=== PATIENT | female | born 1995 | race Caucasian/White ===

== ENCOUNTER 2016-09-01 20:23 | Emergency (ER) | payer OTHER ==
[2016-09-01 20:30] VITALS: BP 140/72; PULSE 82; TEMP 98.1; BMI 30.1
--- NOTE | 2016-09-01 20:54 | PDOC ---
History of Present Illness - General Chief Complaint: Laceration Stated Complaint: LACERATION Time Seen by Provider: 09/01/16 20:35 History Source: Patient Exam Limitations: No Limitations - History of Present Illness Initial Comments: 09/01/16 20:50 20 yr female sat accidentaly on a pair of scissors causing laceration to right buttock. Timing/Duration: reports: just prior to arrival Severity: Yes: mild Past History - Past Medical History Allergies/Adverse Reactions: Allergies Allergy/AdvReac Type Severity Reaction Status Date / Time No Known Allergies Allergy Verified 09/01/16 20:29 Home Medications: Ambulatory Orders NK [No Known Home Medication] 09/01/16 Asthma: No Cancer: No Cardiac Disorders: No Diabetes: No HTN: No Seizures: No Thyroid Disease: No - Psycho/Social/Smoking Cessation Hx Suicidal Ideation: No Smoking History: Never smoked Have you smoked in the past 12 months: No Hx Alcohol Use: No Drug/Substance Use Hx: No Hx Substance Use Treatment: No *Physical Exam - Vital Signs Last Vital Signs Temp Pulse Resp BP Pulse Ox 98.1 F 82 18 140/72 99 09/01/16 20:26 09/01/16 20:26 09/01/16 20:26 09/01/16 20:26 09/01/16 20:26 - Physical Exam General Appearance: Yes: Nourished HEENT: positive: EOMI, MAXX Integumentary: positive: Normal Color, Dry, Warm, Other (right buttock with 2.0cm linear laceration no active bleeding) Neurologic: positive: Alert, Motor Strength 5/5 Procedures - Laceration/Wound Repair Right Buttocks Wound Length: to 2.5 cm Wound Explored: clean Wound's Depth, Shape: into muscle, linear Irrigated w/ Saline: Yes Betadine Prep: Yes Anesthesia: 1% Lidocaine Amount of Anesthetic (ccs): 5 Suture Size/Type: 4:0, nylon Number of Sutures: 4 Sterile Dressing Applied: Yes Splint Applied: No Progress: 09/01/16 20:53 tolerated well edges well approximated 4 simple interrupted sutures placed bacitracin and bandaid Medical Decision Making - Medical Decision Making 09/01/16 20:53 cc: right buttock laceration on scissors wound cleaned pt states tetanus is UTD last year sutured closed wound care discussed *DC/Admit/Observation/Transfer Diagnosis at time of Disposition: Laceration - Discharge Dispostion Disposition: HOME Condition at time of disposition: Improved - Patient Instructions Printed Discharge Instructions: DI for Laceration Repair Additional Instructions: keep dry no getting wet apply a thin layer of antibiotic ointment once a day (such as Bacitracin or Neopsorin ) to the wound and cover with bandaid Return in 10 days for suture removal Return sooner if any concerns
== END 2016-09-01 20:55 | disposition home or self-care (01) ==
LOC: JERFT 20:23
PROC: 0HQ8XZZ Repair Buttock Skin, External Approach (ICD-10-PCS; principal; 2016-09-01)
DX: S31.811A Laceration without foreign body of right buttock, initial encounter (principal); W22.8XXA Striking against or struck by other objects, initial encounter; Y93.89 Activity, other specified; Y92.9 Unspecified place or not applicable
CPT/HCPCS: 12001-25; 99281-25

== ENCOUNTER 2016-09-11 17:31 | Emergency (ER) | payer OTHER ==
[2016-09-11 17:36] VITALS: BP 114/65; PULSE 88; TEMP 98; BMI 30.1
--- NOTE | 2016-09-11 18:02 | PDOC ---
Suture Removal/Wound Check HPI - History of Present Illness Chief Complaint: Suture/Staple Removal(Here) Stated Complaint: STITCHES REMOVAL Time Seen by Provider: 09/11/16 17:49 History Source: Yes: Patient Exam Limitations: Yes: No Limitations Date of Last ED visit: 09/03/16 - Previous ED Treatment Type of procedure performed on last visit: Yes: Laceration Repair Past History - Past Medical History Allergies/Adverse Reactions: Allergies No Known Allergies Allergy (Verified 09/11/16 17:34) Home Medications: Ambulatory Orders NK [No Known Home Medication] 09/01/16 Surgical History: Yes: No Surgical History - Immunization History Tetanus Status: Unknown - Social History Smoking Status: Never smoked Suture Removal/Wound Check PE - Physical Exam Comments: 09/11/16 18:01 healing well; not infected *DC/Admit/Observation/Transfer Diagnosis at time of Disposition: Encounter for removal of sutures - Discharge Dispostion Disposition: HOME Condition at time of disposition: Stable Admit: No - Patient Instructions Additional Instructions: no follow up needed
== END 2016-09-11 18:12 | disposition home or self-care (01) ==
LOC: JERFT 17:31
DX: Z48.02 Encounter for removal of sutures (principal)
CPT/HCPCS: 99281-25

== ENCOUNTER 2017-10-24 13:05 | Inpatient (IN) | payer OTHER ==
[2017-10-24] MEDS ORDERED: CITRIC ACID/SODIUM CITRATE 30 ML UNIT-DOSE CUP PO ONE (13:15)
[2017-10-24] MEDS ORDERED: ELECTROLYTE-148 SOLN 500 ML IV SCH ×2 (13:15→13:45)
[2017-10-24 14:16] VITALS: BMI 36.8
[2017-10-24] MEDS ORDERED: morphine SULFATE/Preservative Free 0.5 MG/ML (1cc Syringe) ONE ×7 (14:25→16:38)
[2017-10-24] MEDS ORDERED: ceFAZolin SODIUM 1 GM VIAL ONE ×3 (14:27→17:47)
[2017-10-24] MEDS ORDERED: IBUPROFEN 800 MG/8 ML IJ IVPB PRN (14:30)
[2017-10-24] MEDS ORDERED: ONDANSETRON 4 MG/2 ML VIAL IVPUSH PRN (14:31)
[2017-10-24] MEDS ORDERED: BUPIVACAINE 0.75% IN DEXTROSE/PF 2ML AMPULE NR ONE (14:32)
[2017-10-24] MEDS ORDERED: OXYTOCIN 10 UNITS/ML VIAL ONE ×2 (14:32→15:04)
--- NOTE | 2017-10-24 14:37 | HP ---
Past Medical History - Primary Care Physician PCP:: Estrada Gloria - Admission Chief Complaint: 39 weeks, previous c/s, request of c/s History of Present Illness: 21 yo f 39 weeks, with one previous c/s , requesting repeat c/s , risks discussed , encourged , declined History Source: Patient Limitations to Obtaining History: No Limitations - Past Medical History ...: 2 ...Para: 1 ...Term: 1 ...: 0 ...Spon : 0 ...Induced : 0 ...Multiple Gestation: 0 ...LMP: 01/24/17 ... Weeks Gestation by Dates: 39.0 ...EDC by Dates: 01/24/18 ...EDC by Sono: 01/24/18 - Past Surgical History Past Surgical History: Yes: Hx Myomectomy: No Hx Transabdominal Cerclage: No - Smoking History Smoking history: Never smoked Have you smoked in the past 12 months: No - Alcohol/Substance Use Hx Alcohol Use: No - Social History History of Recent Travel: No Home Medications - Allergies Allergies/Adverse Reactions: Allergies Allergy/AdvReac Type Severity Reaction Status Date / Time No Known Allergies Allergy Verified 10/24/17 13:29 - Home Medications Home Medications: Ambulatory Orders Vit No.130/Iron/Folic [ Vitamins] 1 each PO DAILY 10/24/17 Review of Systems - Review of Systems Constitutional: reports: No Symptoms Eyes: reports: No Symptoms HENT: reports: No Symptoms Neck: reports: No Symptoms Cardiovascular: reports: No Symptoms Respiratory: reports: No Symptoms Gastrointestinal: reports: No Symptoms Genitourinary: reports: No Symptoms Breasts: reports: No Symptoms Reported Musculoskeletal: reports: No Symptoms Integumentary: reports: No Symptoms Neurological: reports: No Symptoms Endocrine: reports: No Symptoms Hematology/Lymphatic: reports: No Symptoms Psychiatric: reports: No Symptoms Physical Exam - Maternity Vital Signs: Vital Signs Temperature 98.8 F 10/24/17 13:45 Pulse Rate 94 H 10/24/17 13:45 Respiratory Rate 10/24/17 13:45 Blood Pressure 122/84 10/24/17 13:45 O2 Sat by Pulse Oximetry (%) Constitutional: Yes: Well Nourished, No Distress, Calm Eyes: Yes: WNL, Conjunctiva Clear, EOM Intact HENT: Yes: WNL, Atraumatic, Normocephalic Neck: Yes: WNL, Supple, Trachea Midline Cardiovascular: Yes: WNL, Regular Rate and Rhythm Breast(s): Yes: WNL - Abdominal Exam/OB Number of Fetuses: Single Presentation: Vertex Contractions: Yes Regularity: Irritability Intensity: Unaware Heart Rate Location: [facility] Category: I Accelerations: Uniform Decelerations: None - Vaginal Exam/OB Vaginal Bleediing: No Dilatation (cm): closed Effacement (%): 0 Presentation: Vertex/Position Station: -3 - Physical Exam Edema: Yes Edema: LLE: Trace, RLE: Trace Deep Tendon Reflex Grade: Normal +2 Psychiatric: Yes: Alert Hemorrhage Risk Assessment - Risk Factors Medium Risk Factors: Yes: Prior , uterine surgery,or multiple laparotomies Risk Score: 1 Risk Level: Medium Risk Problem List - Problems (1) with 39 completed weeks gestation Code(s): Z3A.39 - 39 WEEKS GESTATION OF (2) Previous section complicating Code(s): O34.219 - MATERNAL CARE FOR UNSP TYPE SCAR FROM PREVIOUS DEL Assessment/Plan admit for repeat c/s. rba discussed
[2017-10-24] MEDS ORDERED: MIDAZOLAM HCL 2 MG/2 ML SINGLE DOSE VIAL ONE ×2 (15:04→16:39)
[2017-10-24] MEDS ORDERED: BENZOCAINE 20% 57 GM BOTTLE TP PRN (15:39)
[2017-10-24] MEDS ORDERED: BENZOCAINE 28 GM HEMORRHOIDAL OINTMENT PR PRN (15:39)
[2017-10-24] MEDS ORDERED: oxyCODONE HCL 5 MG TABLET PO PRN (15:39)
[2017-10-24] MEDS ORDERED: diphenhydrAMINE HCL 25 MG CAPSULE (FP) PO PRN (15:39)
[2017-10-24] MEDS ORDERED: METHYLERGONOVINE MALEATE 0.2 MG/1 ML AMP IM PRN (15:39)
[2017-10-24] MEDS ORDERED: WITCH HAZEL 50% (TUCKS) 40 PAD/JAR PAD TP PRN (15:39)
[2017-10-24] MEDS ORDERED: DEXTROSE 5%-LACTATED RINGERS 1,000 ML IV SCH (15:45)
[2017-10-24] MEDS ORDERED: OXYTOCIN 20 UNITS in 0.9% NS 20 UNIT/1,000 ML INFUS.BAG IV SCH (15:45)
[2017-10-24] MEDS ORDERED: OXYTOCIN 20 UNITS in 0.9% NS 20 UNIT/1,000 ML INFUS.BAG IV ONE (16:43)
[2017-10-24] MEDS ORDERED: DEXTROSE 5%-WATER - 50 ML IVPB ONE (17:47)
[2017-10-24] MEDS: CEFAZOLIN 1 GM in DEXTROSE 5%-WATER - 50 ML IVPB SCH (17:51)
--- NOTE | 2017-10-24 23:53 | OP ---
DATE OF OPERATION: 10/24/2017 PREOPERATIVE DIAGNOSIS: 39 weeks, previous section with request of repeat section. PREOPERATIVE DIAGNOSIS: 39 weeks, previous section with request of repeat section. PROCEDURE: Repeat low segment transverse section. SURGEON: Sandi Gloria M.D. SENIOR MOBILE APPLICATION DEVELOPER: Onelia Delvalle ANESTHESIA: Spinal. ANESTHESIOLOGIST: Maikol Leon M.D. ESTIMATED BLOOD LOSS: 500 mL. OPERATION: Patient was taken to operating room with adequate spinal anesthesia. Abdomen and perineum were prepped and draped. Pfannenstiel abdominal skin incision was made. Abdominal wall was cut layer by layer until the peritoneum was exposed and incised. Upon entering the abdominal cavity, the lower uterine segment was identified, and bladder flap was developed and bladder was pushed down. Then a low transverse uterine incision was made. The incision was extended laterally with bandage scissors. Amniotic sac was entered. Clear fluid. Head delivered from right occipital transverse position. Nasopharynx was suctioned. A live baby was delivered. Placenta was delivered manually. Uterine cavity was cleared of all remaining tissue. Uterine incision was closed in 2 layers, the 1st layer with 0 Biosyn continuous suture, the 2nd layer with 0 Biosyn imbricating the 1st layer. Bladder flap was closed with 0 Vicryl continuous suture. Both tubes and ovaries were checked and were normal. No active bleeding was seen. All the lap, sponge, and instrument counts were correct. Peritoneum was closed with 0 Biosyn continuous suture. Muscles were brought together interrupted suture with 0 Biosyn. Fascia was closed with 0 Biosyn continuous sutures. Subcutaneous fat with interrupted sutures 0 Biosyn, and the skin was closed with eyal. The patient tolerated the procedure well and left the OR in good condition. SANDI GLORIA M.D. /[id number]
[2017-10-25] MEDS ORDERED: ceFAZolin SODIUM 1 GM VIAL ONE (01:15)
[2017-10-25] MEDS ORDERED: DEXTROSE 5%-WATER - 50 ML IVPB ONE (01:15)
[2017-10-25] MEDS: CEFAZOLIN 1 GM in DEXTROSE 5%-WATER - 50 ML IVPB SCH (02:17)
[2017-10-25] MEDS: IBUPROFEN 800 MG/8 ML IJ IVPB PRN ×2 (06:00→14:50)
--- NOTE | 2017-10-25 06:59 | PN ---
Progress Note (short form) - Note Progress Note: pod1 s/p repeat c/s ,doing well, , no c/o Last Vital Signs Temp Pulse Resp BP Pulse Ox 98.1 F 89 20 114/65 10/25/17 06:00 10/25/17 06:00 10/25/17 06:00 10/25/17 06:00 10/24/17 16:50 abdomen soft, no distension, no cva incision dry, clean no calf tenderness lochia mild pod 1 doing well, plan ambulate, cbc, advance diet Problem List - Problems (1) with 39 completed weeks gestation Code(s): Z3A.39 - 39 WEEKS GESTATION OF (2) Previous section complicating Code(s): O34.219 - MATERNAL CARE FOR UNSP TYPE SCAR FROM PREVIOUS DEL
[2017-10-25 08:40] LABS: BASO % 0.1 % (0-2.0); EOS % 0.9 % (0-4.5); HEMATOCRIT 35.8 % (32.4-45.2); HEMOGLOBIN 12.2 GM/dL (10.7-15.3); LYMPH % 16.6 % (8-40); MCH 30.1 pg (25.7-33.7); MEAN CELL VOLUME 88.7 fl (80-96); MEAN PLT VOLUME 7.9 fl (7.5-11.1); MONO % 6.3 % (3.8-10.2); NEUT % 76.1 % (42.8-82.8); PLATELET COUNT 272 K/MM3 (134-434); RBC 4.04 M/mm3 (3.60-5.2); RDW 13.7 % (11.6-15.6); WHITE BLOOD COUNT 14.5 K/mm3 (4.0-10.0)
[2017-10-25] MEDS: ENOXAPARIN NA (PORCINE) 40 MG/0.4 ML DISP.SYRIN SQ SCH (10:03)
[2017-10-25] MEDS ORDERED: BISACODYL 10 MG SUPP.RECT RC PRN (15:39)
[2017-10-26] MEDS: oxyCODONE HCL 5 MG TABLET PO PRN ×3 (01:10→20:49)
[2017-10-26] MEDS: SIMETHICONE 80 MG TAB.CHEW (FP) PO PRN ×3 (01:10→20:48)
[2017-10-26] MEDS: ACETAMINOPHEN 325 MG TABLET (FP) PO PRN ×3 (01:10→20:48)
--- NOTE | 2017-10-26 07:11 | PN ---
Post Progress Note - Subjective Subjective: c/o pain at op site scae 5-6/10 not passing gas satisfactorily, feels discomfort bm not done Post Day: 2 Type of Delivery: Repeat C/S Vital Signs: Vital Signs Temperature 97.9 F 10/25/17 22:00 Pulse Rate 88 10/25/17 22:00 Respiratory Rate 20 10/25/17 22:00 Blood Pressure 122/70 10/25/17 22:00 O2 Sat by Pulse Oximetry (%) 98 10/24/17 16:50 Breast Exam: Yes: Soft, Other (doing both BF & bottle feeding ). No: Engorged Uterus: Yes: Fundus Firm, Fundus below umbilicus, Non-tender Incision: Yes: Dressing dry and intact (to be changed ). No: Redness, Oozing Abdomen/GI: Yes: Abdomen soft (bs active ), Passing flatus, Tolerating PO (diet ). No: Abdominal Distention, Tender Lochia: Yes: Rubra Lochia, amount: Moderate Extremities: Yes: Calves non-tender Perineum: Yes: Intact Activity: Ambulating - Labs Labs: CBC WBC 14.5 K/mm3 (4.0-10.0) H D 10/25/17 08:00 RBC 4.04 M/mm3 (3.60-5.2) 10/25/17 08:00 Hgb 12.2 GM/dL (10.7-15.3) 10/25/17 08:00 Hct 35.8 % (32.4-45.2) 10/25/17 08:00 MCV 88.7 fl (80-96) 10/25/17 08:00 MCH 30.1 pg (25.7-33.7) 10/25/17 08:00 MCHC 34.0 g/dl (32.0-36.0) 10/25/17 08:00 RDW 13.7 % (11.6-15.6) 10/25/17 08:00 Plt Count 272 K/MM3 (134-434) 10/25/17 08:00 MPV 7.9 fl (7.5-11.1) 10/25/17 08:00 Absolute Neuts (auto) 11.0 # 10/25/17 08:00 Neutrophils % 76.1 % (42.8-82.8) 10/25/17 08:00 Lymphocytes % 16.6 % (8-40) D 10/25/17 08:00 Monocytes % 6.3 % (3.8-10.2) 10/25/17 08:00 Eosinophils % 0.9 % (0-4.5) 10/25/17 08:00 Basophils % 0.1 % (0-2.0) 10/25/17 08:00 Nucleated RBC % 0 % (0-0) 10/25/17 08:00 Assessment/Plan stable encourage ambulation, deep breathing & po fluids dulcolax suppository pr
[2017-10-26] MEDS: ENOXAPARIN NA (PORCINE) 40 MG/0.4 ML DISP.SYRIN SQ SCH (09:51)
[2017-10-26] MEDS ORDERED: SENNOSIDES/DOCUSATE COMBO (SENNA PLUS) TABLET (UD) PO PRN (22:00)
[2017-10-26 23:12] VITALS: PULSE 96
[2017-10-27] MEDS: SIMETHICONE 80 MG TAB.CHEW (FP) PO PRN ×2 (03:09→09:16)
[2017-10-27] MEDS: ACETAMINOPHEN 325 MG TABLET (FP) PO PRN ×2 (03:09→09:15)
[2017-10-27] MEDS: IBUPROFEN 600 MG TABLET (FP) PO PRN ×2 (03:09→09:14)
[2017-10-27 08:10] VITALS: BP 110/69; TEMP 98
[2017-10-27 08:16] LABS: BASO % 0.3 % (0-2.0); EOS % 2.1 % (0-4.5); HEMATOCRIT 34.2 % (32.4-45.2); HEMOGLOBIN 11.6 GM/dL (10.7-15.3); LYMPH % 25.4 % (8-40); MCH 30.2 pg (25.7-33.7); MCHC 33.9 g/dl (32.0-36.0); MEAN PLT VOLUME 7.6 fl (7.5-11.1); MONO % 6.3 % (3.8-10.2); NEUT % 65.9 % (42.8-82.8); PLATELET COUNT 271 K/MM3 (134-434); RBC 3.85 M/mm3 (3.60-5.2); RDW 13.8 % (11.6-15.6); WHITE BLOOD COUNT 12.8 K/mm3 (4.0-10.0)
--- NOTE | 2017-10-27 08:41 | PN ---
Post Progress Note - Subjective Subjective: no c/o pain today . bm done & passes flatus Post Day: 3 Type of Delivery: Repeat C/S Vital Signs: Vital Signs Temperature 98.0 F 10/27/17 07:40 Pulse Rate 96 H 10/27/17 07:40 Respiratory Rate 20 10/27/17 07:40 Blood Pressure 110/69 10/27/17 07:40 O2 Sat by Pulse Oximetry (%) 98 10/24/17 16:50 Breast Exam: Yes: Soft, Other (BF). No: Engorged Uterus: Yes: Fundus Firm, Fundus below umbilicus, Non-tender Incision: Yes: [place] intact. No: Redness, Oozing Abdomen/GI: Yes: Abdomen soft, Passing flatus, Tolerating PO (diet). No: Abdominal Distention, Tender Lochia: Yes: Rubra Lochia, amount: Moderate Extremities: Yes: Calves non-tender Perineum: Yes: Intact Activity: Ambulating - Labs Labs: CBC WBC 14.5 K/mm3 (4.0-10.0) H D 10/25/17 08:00 RBC 4.04 M/mm3 (3.60-5.2) 10/25/17 08:00 Hgb 12.2 GM/dL (10.7-15.3) 10/25/17 08:00 Hct 35.8 % (32.4-45.2) 10/25/17 08:00 MCV 88.7 fl (80-96) 10/25/17 08:00 MCH 30.1 pg (25.7-33.7) 10/25/17 08:00 MCHC 34.0 g/dl (32.0-36.0) 10/25/17 08:00 RDW 13.7 % (11.6-15.6) 10/25/17 08:00 Plt Count 272 K/MM3 (134-434) 10/25/17 08:00 MPV 7.9 fl (7.5-11.1) 10/25/17 08:00 Absolute Neuts (auto) 11.0 # 10/25/17 08:00 Neutrophils % 76.1 % (42.8-82.8) 10/25/17 08:00 Lymphocytes % 16.6 % (8-40) D 10/25/17 08:00 Monocytes % 6.3 % (3.8-10.2) 10/25/17 08:00 Eosinophils % 0.9 % (0-4.5) 10/25/17 08:00 Basophils % 0.1 % (0-2.0) 10/25/17 08:00 Nucleated RBC % 0 % (0-0) 10/25/17 08:00 Assessment/Plan stable plan discharge today
[2017-10-27] MEDS: ENOXAPARIN NA (PORCINE) 40 MG/0.4 ML DISP.SYRIN SQ SCH (09:16)
--- NOTE | 2017-10-28 08:30 | DS ---
Physical Exam-HISTORICAL SITE GUIDE Vital Signs: Vital Signs Temperature 98.0 F 10/27/17 07:40 Pulse Rate 96 H 10/27/17 07:40 Respiratory Rate 20 10/27/17 07:40 Blood Pressure 110/69 10/27/17 07:40 O2 Sat by Pulse Oximetry (%) 98 10/24/17 16:50 Constitutional: Yes: Well Nourished, No Distress, Calm Eyes: Yes: WNL, Conjunctiva Clear, EOM Intact HENT: Yes: WNL, Atraumatic, Normocephalic Neck: Yes: WNL, Supple, Trachea Midline Cardiovascular: Yes: WNL, Regular Rate and Rhythm Respiratory: Yes: WNL, Regular, CTA Bilaterally Gastrointestinal: Yes: WNL ...Rectal Exam: Yes: WNL Renal/: Yes: WNL ....Post : Yes: Uterus firm, Uterus non-tender, Slight lochia rubra Breast(s): Yes: WNL Musculoskeletal: Yes: WNL Extremities: Yes: WNL Integumentary: Yes: WNL, Tattoos Wound/Incision: Yes: Clean/Dry, Well Approximated, [place] Intact Neurological: Yes: WNL, Alert, Oriented ...Motor Strength: WNL Psychiatric: Yes: WNL, Alert, Oriented Labs: CBC, BMP 10/27/17 07:40 Delivery - Delivery Section: Repeat (no complication), Low Flap Transverse Type of Anesthesia: Spinal Episiotomy/Laceration: None EBL (cc): 500 Delivery, Single - Stages of Labor Date 1st Stage Initiatied: 10/23/17 Time 1st Stage Initiated: 23:00 Date of Delivery: 10/24/17 Time of Delivery: 14:56 Time Placenta Delivered: 14:57 Placenta: Yes: Expressed - Condition of Infant Tailercpa/Hydroelectric Station Operator Present: Yes Name: Natty Smith Infant Gender: Female Weight: 7 lb 14 oz Position: Right, OT Total Hours ROM (Hrs/Mins): 2mins - 1 Minute Total Score: 9 5 Minutes Total Score: 9 - Feeding Plan Initial Plan: Elected not to breastfeed exclusively throughout hospitalization Discharge Summary Reason For Visit: Procedures: Principal: repeat LST c/s Hospital Course: no complication Condition: Stable - Instructions Diet, Activity, Other Instructions: Post Instructions DIET: Continue good diet high in protein, calcium, and iron rich foods. Drink at least eight (8) glasses of water daily in addition to other fluids. ct Regular diet MEDICATIONS: Continue vitamins and iron as previously directed. Motrin and Tylenol may be taken for minor discomfort. ACTIVITY: Mild to moderate exercise may be started in two (2) weeks. Take frequent rest periods. Resume normal activity after six (6) week check up. WOUND CARE OF OPERATIVE SITE: Continue use of perineal bottle until vaginal discharge stops. Keep area clean. Shower daily. Keep abdominal wound dry. Report any drainage or redness to physician. Tub baths, tampons and douches are not permitted for [address] Breast feeding & or Bottle feeding BREAST CARE: (For those that are not breast feeding): If engorgement occurs: Wear tight fitting bra. Take Tylenol or Motrin for pain. Apply cold packs (ice in bags to each breast ) FAMILY PLANNING: There are many control alternatives to pursue and they should be discussed at your first office visit. You may resume sexual activity after your six (6) week check up. (Remember, breast feeding is not a contraceptive) NEXT PHYSICIAN APPOINTMENT: Be certain to call for a one (1) week appointment, unless otherwise directed. rtc for eyal removal Call Clinic or got to Emergency Dept if you have any of the following: Heavy vaginal bleeding Painful urination Leg pain Unusual odor noted to vaginal bleeding High fever Red streaking noted on breast HRH: [phone] Referrals: Estrada Gloria MD [Staff Physician] - Disposition: HOME - Home Medications Comprehensive Discharge Medication List: Ambulatory Orders Vit No.130/Iron/Folic [ Tablet] 1 each PO DAILY 10/24/17 Acetaminophen [Tylenol .Regular Strength -] 500 mg PO Q6H PRN #30 tablet Ibuprofen [Motrin -] 600 mg PO Q4H PRN #30 tablet 10/27/17
== END 2017-10-27 10:15 | disposition home or self-care (01) | DRG 540 ==
LOC: JLDR 13:05 → J3W 17:04
PROVIDERS: ADMIT Obstetrics & Gynecology; ATTEND Obstetrics & Gynecology
PROC: 10D00Z1 Extraction of Products of Conception, Low, Open Approach (ICD-10-PCS; principal; 2017-10-24)
DX: O34.211 Maternal care for low transverse scar from previous cesarean delivery (principal); Z3A.39 39 weeks gestation of pregnancy; Z37.0 Single live birth
CPT/HCPCS: 36415; 85025